=== PATIENT | female | born 1980 | race Caucasian/White ===

== ENCOUNTER 2021-08-14 12:11 | Emergency (ER) | payer OTHER, SELFPAY ==
[2021-08-14 12:19] VITALS: BP 128/56; PULSE 89; RESP 16; TEMP 36.4; O2SAT 100
--- NOTE | 2021-08-14 12:22 | ED.DENTAL ---
HPI - Dental/Oral General Chief complaint: Dental/Oral Stated complaint: Tooth pain Time Seen by Provider: 08/14/21 12:23 Source: patient Mode of arrival: ambulatory Limitations: no limitations History of Present Illness HPI Narrative: 40 yo F presents with R lower dental pain for 3 days. Is aware that she has several broken teeth that need to be pulled. Reports that she has a fear of dental clinics. Went one year ago and was told she needed to see an oral surgeon. denies fever/chills. All systems reviewed and negative except as noted above. Related Data Home Medications Medication Instructions Recorded Confirmed atorvastatin 80 mg tablet 80 mg PO DAILY 08/14/21 08/14/21 diclofenac sodium 50 mg 50 mg PO DAILY 08/14/21 08/14/21 tablet,delayed release dulaglutide 0.75 mg/0.5 mL 0.75 mg subcut WEEKLY 08/14/21 08/14/21 subcutaneous pen injector (Trulicity) duloxetine 60 mg capsule,delayed 60 mg PO DAILY 08/14/21 08/14/21 release sprinkle fluoxetine 20 mg tablet 20 mg PO BID 08/14/21 08/14/21 hydrochlorothiazide 25 mg tablet 25 mg PO DAILY 08/14/21 08/14/21 insulin lispro 100 unit/mL 1 sliding scale dose subcut 08/14/21 08/14/21 subcutaneous pen (Humalog KwikPen USEASDIRECTD (U-100) Insulin) levothyroxine 200 mcg tablet 200 mcg PO DAILY 08/14/21 08/14/21 losartan 50 mg tablet 50 mg PO DAILY 08/14/21 08/14/21 Allergies Allergy/AdvReac Type Severity Reaction Status Date / Time No Known Allergies Allergy Verified 08/14/21 12:31 Review of Systems Review of Systems: CONSTITUTIONAL: Denies fever, chills, or sweats. EYES: Denies visual changes, redness, or discharge. ENT: Denies rhinorrhea, congestion, sore throat, or otalgia. Reports right lower dental pain. CARDIOVASCULAR: Denies chest pain, palpitations, or edema. RESPIRATORY: Denies cough or dyspnea. GASTROINTESTINAL: Denies abdominal pain, nausea, vomiting, or diarrhea. GENITOURINARY: Denies dysuria or hematuria. SKIN: Denies rash or itching. MUSCULOSKELETAL: Denies back pain, joint pain, or myalgia. NEUROLOGIC: Denies headache, numbness, or weakness. PSYCHIATRIC: Denies anxiety or depression. All other systems reviewed are negative, except as documented in HPI. PMFSH Comments At time of signature, agree with nursing past medical, surgical, social and family history. There is no relevant family history pertinent to the presenting complaint. Exam Narrative: GENERAL: This is a well-nourished, well-developed patient, in no apparent distress. HEAD: normocephalic, atraumatic. EYES: PERRL. Sclera clear/white. Vision is grossly intact. EARS: External ears normal to light NOSE: External nose normal MOUTH: Tooth #31 broken, erythema to gums, swollen. no fluctuance concerning for abscess. Tooth #18 and #19 broken down to gumline. NECK: Neck supple, non-tender without lymphadenopathy, masses or thyromegaly. CARDIOVASCULAR: Regular rate and rhythm without murmurs, gallops, or rubs. RESPIRATORY: Clear to auscultation. Breath sounds equal bilaterally. No wheezes, rales, or rhonchi. SKIN: warm, Dry, intact with no suspicious lesions or rash, good texture and turgor. NEURO: awake, alert, and oriented to person, place and time. There were no obvious focal neurologic abnormalities. EXTREMITIES: No joint tenderness, effusion, or edema noted. Course Course Level of Care: Express Care Visit Vital Signs Vital signs: Vital Signs Temperature 36.4 C 08/14/21 12:19 Pulse Rate 89 08/14/21 12:19 Respiratory Rate 16 08/14/21 12:19 Blood Pressure 128/56 L 08/14/21 12:19 Pulse Oximetry 100 08/14/21 12:19 Oxygen Delivery Room Air 08/14/21 12:19 Temperature 36.4 C 08/14/21 12:31 Pulse Rate 89 08/14/21 12:31 Respiratory Rate 16 08/14/21 12:31 Blood Pressure 128/56 L 08/14/21 12:31 Pulse Oximetry 100 08/14/21 12:31 Oxygen Delivery Room Air 08/14/21 12:31 Reviewed MDM - Dental/Oral MDM Narrative Medical decision making
[2021-08-14 12:31] VITALS: BP 128/56; PULSE 89; RESP 16; TEMP 36.4; O2SAT 100
== END 2021-08-14 12:35 | disposition home or self-care (01) ==
PROVIDERS: Emergency Provider Nurse Practitioner Family
DX: K04.7 Periapical abscess without sinus (principal); E78.00 Pure hypercholesterolemia, unspecified; I10 Essential (primary) hypertension; K21.9 Gastro-esophageal reflux disease without esophagitis; M19.90 Unspecified osteoarthritis, unspecified site; E11.9 Type 2 diabetes mellitus without complications; E89.0 Postprocedural hypothyroidism; F41.9 Anxiety disorder, unspecified; F32.A Depression, unspecified
CPT/HCPCS: 99213; G0463